=== PATIENT | male | born 1995 | race Caucasian/White ===

== ENCOUNTER 2019-08-04 10:11 | Emergency (ER) | payer OTHER ==
[~2019-08-04] VITALS: Ht 167.6 cm; Wt 68.0 kg
[2019-08-04 10:13] VITALS: BP 126/67; Ht 167.6 cm; Wt 68.0 kg
== END 2019-08-04 12:46 | disposition other institution (70) ==
LOC: ED 10:11
DX: Z02.89 Encounter for other administrative examinations (principal)